=== PATIENT | female | born 2000 | race Hispanic/Latino ===

== ENCOUNTER 2023-05-18 00:15 | Emergency (ER) | payer OTHER ==
[2023-05-18] MEDS ORDERED: BENZONATATE 100 MG CAP PO ONE (01:04)
--- NOTE | 2023-05-18 01:45 | EDPHYS ---
Physician Documentation [facility] Name: Savannah Tyler Age: 22 yrs Sex: Female : 2000 Arrival Date: 05/18/2023 Time: 00:15 Bed 6 Private MD: ALYSSA Physician Xavier Medrano HPI: 05/18 00:45 This 22 yrs old Female presents to ER via Ambulatory with complaints of Sore cp Throat, Productive Cough. 00:45 The patient presents with sore throat. Onset: The symptoms/episode began/occurred last cp week. Associated signs and symptoms: Pertinent positives: cough, Pertinent negatives dysphagia, fever, flu-like symptoms. 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 - Social history:: Smoking status: Reported history of juuling and/or vaping. ROS: 00:50 Constitutional: Negative for body aches, chills, fever, poor PO intake. cp 00:50 Eyes: Negative for injury, pain, redness, and discharge. cp 00:50 ENT: Positive for sore throat, Negative for drainage from ear(s), ear pain, difficulty swallowing, difficulty handling secretions. 00:50 Respiratory: Positive for cough, Negative for shortness of breath, wheezing. 00:50 Abdomen/GI: Negative for abdominal pain, vomiting, diarrhea, constipation. 00:50 Neuro: Negative for altered mental status, dizziness, headache, weakness. 00:50 All other systems are negative. Exam: 00:55 Constitutional: The patient appears in no acute distress, alert, awake, non-toxic, well cp developed, well nourished. 00:55 Head/Face: Normocephalic, atraumatic. cp 00:55 Eyes: Periorbital structures: appear normal, Conjunctiva: normal, no exudate, no injection, Lids and lashes: appear normal, bilaterally. 00:55 ENT: External ear(s): are unremarkable, Ear canal(s): are normal, clear, TM's: dullness, bilaterally, Nose: is normal, Mouth: Lips: moist, Oral mucosa: pink and intact, moist, Posterior pharynx: Airway: no evidence of obstruction, patent, Tonsils: bilaterally enlarged, with erythema, with exudate, Uvula: midline, erythema, that is moderate. 00:55 Neck: ROM/movement: is normal, is supple, no meningismus, no nuchal rigidity. 00:55 Chest/axilla: Inspection: normal. 00:55 Cardiovascular: Rate: normal, Rhythm: regular. 00:55 Respiratory: the patient does not display signs of respiratory distress, Respirations: normal, no use of accessory muscles, no retractions, labored breathing, is not present, Breath sounds: are clear throughout, no decreased breath sounds, no stridor, no wheezing. 00:55 Abdomen/GI: Exam negative for discomfort, distension, guarding, Inspection: abdomen appears normal. Vital Signs: 00:41 BP 122 / 82; Pulse 89; Resp 16; Temp 98.1(O); Pulse Ox 100% on R/A; Weight 90 kg (M); ll3 Height 5 ft. 1 in. (R); 01:45 BP 102 / 64; Pulse 80; Resp 16 S; Pulse Ox 100% on R/A; ha1 00:41 Body Mass Index 37.49 (90.00 kg, 154.94 cm) ll3 MDM: 00:38 Patient medically screened. cp 01:44 Data reviewed: vital signs, nurses notes, lab test result(s). cp 01:44 Differential diagnosis: apthous stomatitis, apthous ulcer, group A strep tonsillitis, cp influenza, peritonsillar abscess pharyngitis, retropharyngeal abcess. I considered the following discharge prescriptions or medication management in the emergency department Medications were administered in the Emergency Department. See MAR. Counseling: I had a detailed discussion with the patient and/or guardian regarding: the historical points, exam findings, and any diagnostic results supporting the discharge/admit diagnosis, lab results, to return to the emergency department if symptoms worsen or persist or if there are any questions or concerns that arise at home. Response to treatment: the patient's symptoms have mildly improved after treatment, and as a result, I will discharge patient. 05/18 00:42 Order name: Strep; Complete Time: 01:44 cp 05/18 01:44 Interpretation: Reviewed. cp 05/18 01:09 Order name: SARS-COV-2 RT PCR EDMS 05/18 01:09 Order name: Influenza Screen (A ; Complete Time: 01:44 EDMS 05/18 01:09 Order name: Respiratory Syncytial Virus Ag; Complete Time: 01:44 EDMS 05/18 01:23 Order name: Throat Culture EDMS Administered Medications: 01:04 Drug: Tessalon Perle PO 200 mg Route: PO; ll3 01:53 Follow up: Response: No adverse reaction ha1 Disposition Summary: 05/18/23 01:44 Discharge Ordered Location: Home cp Problem: new cp Symptoms: have improved cp Condition: Stable cp Diagnosis - Acute tonsillitis, unspecified cp - Cough cp Followup: cp - With: Private Physician - When: 2 - 3 days - Reason: Worsening of condition Discharge Instructions: - Discharge Summary Sheet cp - Tonsillitis cp - Cough, Adult cp Forms: - Medication Reconciliation Form cp - Thank You Letter cp - Antibiotic Education cp - Prescription Opioid Use cp - [email or web address] cp Prescriptions: - Bromfed DM 2-30-10 mg/5 mL Oral syrup - administer 10 milliliter by ORAL route every 6 hours as needed for cold cp symptoms; 180 milliliter; Refills: 0, Product Selection Permitted - Augmentin 875-125 mg Oral Tablet - take 1 tablet by ORAL route every 12 hours for 10 days; 20 tablet; Refills: 0, cp Product Selection Permitted - Ibuprofen 800 mg Oral Tablet - take 1 tablet by ORAL route every 8 hours As needed take with food; 30 tablet; cp Refills: 0, Product Selection Permitted Signatures: Dispatcher [employer] EDMS Xavier Gar PA PA cp Kurtis Martinez RN RN ll3 Alma Scruggs RN ha1 Corrections: (The following items were deleted from the chart) : 00:43 COVID-19/FLU A+B/RSV+MOL.LAB.BRZ ordered. EDMS EDMS
--- NOTE | 2023-05-18 01:45 | ER ---
Nurse's Notes [facility] Name: Savannah Tyler Age: 22 yrs Sex: Female : 2000 Arrival Date: 05/18/2023 Time: 00:15 Bed 6 Private MD: Diagnosis: Acute tonsillitis, unspecified;Cough Presentation: 05/18 00:41 Chief complaint: Patient states: C/O cough, and sore throat since Tuesday, states "I ll3 think its getting worse". Coronavirus screen: Vaccine status: Patient reports being unvaccinated. cough unrelated to allergies, sore throat. Ebola Screen: No symptoms or risks identified at this time. Initial Sepsis Screen: Does the patient meet any 2 criteria? No. Patient's initial sepsis screen is negative. Does the patient have a suspected source of infection? No. Patient's initial sepsis screen is negative. Risk Assessment: Do you want to hurt yourself or someone else? Patient reports no desire to harm self or others. Onset of symptoms was May 13, 2023. 00:41 Method Of Arrival: Ambulatory ll3 00:41 Acuity: RUDY 4 ll3 Triage Assessment: 00:43 General: Appears uncomfortable, Behavior is calm, cooperative. Pain: Complains of pain ll3 in left aspect of posterior pharynx and right aspect of posterior pharynx Pain does not radiate. EENT: Throat is pink Reports pain since c/o pain with coughing since tuesday. Respiratory: Respiratory effort is even, unlabored, Respiratory pattern is regular, symmetrical. Respiratory: Reports cough that is persistent since tuesday. Derm: Skin is pink, warm \\T\\ dry. 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 - Social history:: Smoking status: Reported history of juuling and/or vaping. Screenin:[address] [facility] ED Fall Risk Assessment (Adult) History of falling in the last 3 months, ll3 including since admission No falls in past 3 months (0 pts) Confusion or Disorientation No (0 pts) Intoxicated or Sedated No (0 pts) Impaired Gait No (0 pts) Mobility Assist Device Used No (0 pt) Altered Elimination No (0 pt) Score/Fall Risk Level 0 - 2 = Low Risk Oriented to surroundings, Maintained a safe environment, Educated pt \\T\\ family on fall prevention, incl call for assistance when getting out of bed. Abuse screen: Denies threats or abuse. Denies injuries from another. Nutritional screening: On. Tuberculosis screening: No symptoms or risk factors identified. Assessment: 00:43 General: See triage assessessment. Respiratory: Airway is patent Breath sounds are ll3 clear bilaterally. 01:45 Reassessment: Patient and/or family updated on plan of care and expected duration. Pain ha1 level reassessed. Patient is alert, oriented x 3, equal unlabored respirations, skin warm/dry/pink. Vital Signs: 00:41 BP 122 / 82; Pulse 89; Resp 16; Temp 98.1(O); Pulse Ox 100% on R/A; Weight 90 kg (M); ll3 Height 5 ft. 1 in. (R); 01:45 BP 102 / 64; Pulse 80; Resp 16 S; Pulse Ox 100% on R/A; ha1 00:41 Body Mass Index 37.49 (90.00 kg, 154.94 cm) ll3 ED Course: 00:20 Patient arrived in ED. ja2 00:29 Xavier Gar PA is PHCP. cp 00:29 Xavier Medrano MD is Attending Physician. cp 00:43 Triage completed. ll3 00:46 Arm band placed on Patient placed in an exam room, on a stretcher, on pulse oximetry. ll3 00:47 Patient has correct armband on for positive identification. Bed in low position. Call ll3 light in reach. Side rails up X 1. Adult w/ patient. 01:04 Strep Sent. ll3 01:52 No provider procedures requiring assistance completed. Patient did not have IV access ha1 during this emergency room visit. Administered Medications: 01:04 Drug: Tessalon Perle PO 200 mg Route: PO; ll3 01:53 Follow up: Response: No adverse reaction ha1 Medication: 00:47 VIS not applicable for this client. ll3 Outcome: 01:44 Discharge ordered by . cp 01:52 Discharged to home ambulatory, with family. ha1 01:52 Condition: stable 01:52 Discharge instructions given to patient, family, Instructed on discharge instructions, follow up and referral plans. medication usage, Demonstrated understanding of instructions, follow-up care, medications, Prescriptions given X 3. 01:53 Patient left the ED. ha1 Signatures: Xavier Gar PA PA cp Alexander, Jessica ja2 Kurtis Martinez RN RN 3 Alma Scruggs RN RN 1 Corrections: (The following items were deleted from the chart) 01:09 01:04 COVID-19/FLU A+B/RSV+MOL.LAB.BRZ drawn and sent. ll3 EDMS
[2023-05-18 02:17] VITALS: TEMP 98.1; O2SAT 100
[2023-05-18 02:18] VITALS: BP 102/64
== END 2023-05-18 01:53 | disposition home or self-care (01) ==
LOC: ER 00:15
DX: J03.90 Acute tonsillitis, unspecified (principal); R05.9 Cough, unspecified; Z20.822 Contact with and (suspected) exposure to COVID-19
CPT/HCPCS: 87070; 87081; 87635; 87804; 87807; 99284

== ENCOUNTER 2024-12-04 19:07 | Emergency (ER) | payer OTHER ==
--- NOTE | 2024-12-04 19:58 | ER ---
Nurse's Notes [facility] Name: Savannah Tyler Age: 24 yrs Sex: Female : 2000 Arrival Date: 12/04/2024 Time: 19:07 Bed 12 Private MD: Diagnosis: Acute upper respiratory infection, unspecified;Fever, unspecified Presentation: 12/04 19:49 Chief complaint: Patient states: Cough, bodyaches and runny nose onset 3 days ago. pt's cm10 children also sick. Coronavirus screen: Client denies travel out of the [place] in the last 14 days. Ebola Screen: Patient denies travel to an Ebola-affected area in the 21 days before illness onset. Initial Sepsis Screen: Does the patient meet any 2 criteria? HR > 90 bpm. Does the patient have a suspected source of infection? No. Patient's initial sepsis screen is negative. Risk Assessment: Do you want to hurt yourself or someone else? Patient reports no desire to harm self or others. Onset of symptoms was December 01, 2024. 19:49 Method Of Arrival: Ambulatory cm10 19:49 Acuity: RUDY 4 cm10 Triage Assessment: 19:51 General: Appears in no apparent distress. comfortable, Behavior is calm, cooperative. cm10 Neuro: No deficits noted. Level of Consciousness is awake, alert, obeys commands, Oriented to person, place, time, situation, Appropriate for age. Respiratory: No deficits noted. Airway is patent Respiratory effort is even, unlabored, Respiratory pattern is regular, symmetrical. 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 - Infectious Disease History:: Denies. - Social history:: Smoking status: Patient denies any tobacco usage or history of. - Family history:: not pertinent. Screenin:14 [facility] ED Fall Risk Assessment (Adult) History of falling in the last 3 months, vc1 including since admission No falls in past 3 months (0 pts) Confusion or Disorientation No (0 pts) Intoxicated or Sedated No (0 pts) Impaired Gait No (0 pts) Mobility Assist Device Used No (0 pt) Altered Elimination No (0 pt) Score/Fall Risk Level 0 - 2 = Low Risk Oriented to surroundings, Maintained a safe environment, Educated pt \T\ family on fall prevention, incl call for assistance when getting out of bed. Abuse screen: Denies threats or abuse. Nutritional screening: No deficits noted. Tuberculosis screening: No symptoms or risk factors identified. Vital Signs: 19:49 BP 126 / 79; Pulse 98; Resp 19; Temp 99.1(O); Pulse Ox 100% on R/A; Weight 81.65 kg; cm10 Height 5 ft. 1 in. ; Pain 6/10; 21:01 BP 112 / 82; Pulse 104; Resp 18; Temp 98.6(TE); Pulse Ox 100% on R/A; oe 19:49 Body Mass Index 34.01 (81.65 kg, 154.94 cm) cm10 19:49 Pain Scale: Adult cm10 ED Course: 19:13 Patient arrived in ED. mr 19:28 Xavier Medrano MD is Attending Physician. [facility] 19:50 Triage completed. cm10 19:50 SARS RAPID Sent. bc6 19:50 Flu Sent. bc6 19:50 COVID swab sent to lab. Flu and/or RSV swab sent to lab. bc6 19:51 Arm band placed on right wrist. Patient placed in waiting room. cm10 21:14 No provider procedures requiring assistance completed. Patient did not have IV access vc1 during this emergency room visit. 21:15 Patient has correct armband on for positive identification. Provided Education on: vc1 tamiflu. Administered Medications: 19:57 Not Given (Patient Refused): ibuprofensuspension 10 mg/kg PO once cm10 Medication: 21:14 VIS not applicable for this client. vc1 Outcome: 19:57 Discharge ordered by . janice 21:14 Discharged to home ambulatory, with family, vc1 21:14 Condition: good 21:14 Discharge instructions given to patient, Instructed on discharge instructions, follow up and referral plans. medication usage, Demonstrated understanding of instructions, follow-up care, medications, Prescriptions given X 4, 21:15 Patient left the ED. vc1 Signatures: Xavier Medrano MD MD cha Rivera, Mary, Prashant Reg mr Burgess, Lucy Durant, RN RN vc1 Ximena Addison6 Susannah Howard, RN RN cm10
--- NOTE | 2024-12-04 19:58 | EDPHYS ---
Physician Documentation [facility] Name: Savannah Tyler Age: 24 yrs Sex: Female : 2000 Arrival Date: 12/04/2024 Time: 19:07 Bed 12 Private MD: ED Physician Xavier Medrano HPI: 12/04 19:54 This 24 yrs old Female presents to ER via Ambulatory with complaints of Flu janice Symptoms. 19:54 The patient or guardian reports airway noise, cough, difficulty breathing, flu janice symptoms. Onset: The symptoms/episode began/occurred 2 day(s) ago. Modifying factors: The symptoms are alleviated by nothing. the symptoms are aggravated by nothing. Associated signs and symptoms: Pertinent positives: rhinorrhea, sore throat, Pertinent negatives: diarrhea. Severity of symptoms: At their worst the symptoms were mild in the emergency department the symptoms are unchanged. The patient has experienced similar episodes in the past, several times. 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 - Infectious Disease History:: Denies. - Social history:: Smoking status: Patient denies any tobacco usage or history of. - Family history:: not pertinent. ROS: 19:54 Constitutional: Negative for fever, chills, and weight loss, Eyes: Negative for injury, janice pain, redness, and discharge, ENT: Negative for injury, pain, and discharge, Neck: Negative for injury, pain, and swelling, Cardiovascular: Negative for chest pain, palpitations, and edema, Abdomen/GI: Negative for abdominal pain, nausea, vomiting, diarrhea, and constipation, Back: Negative for injury and pain, : Negative for injury, bleeding, discharge, and swelling, MS/Extremity: Negative for injury and deformity, Skin: Negative for injury, rash, and discoloration, Neuro: Negative for headache, weakness, numbness, tingling, and seizure, Psych: Negative for depression, anxiety, suicide ideation, homicidal ideation, and hallucinations, Allergy/Immunology: Negative for hives, rash, and allergies, Endocrine: Negative for neck swelling, polydipsia, polyuria, polyphagia, and marked weight changes, Hematologic/Lymphatic: Negative for swollen nodes, abnormal bleeding, and unusual bruising, 19:54 Respiratory: Positive for cough, Exam: 19:54 Constitutional: This is a well developed, well nourished patient who is awake, alert, janice and in no acute distress. Head/Face: Normocephalic, atraumatic. Eyes: Pupils equal round and reactive to light, extra-ocular motions intact. Lids and lashes normal. Conjunctiva and sclera are non-icteric and not injected. Cornea within normal limits. Periorbital areas with no swelling, redness, or edema. ENT: Nares patent. No nasal discharge, no septal abnormalities noted. Tympanic membranes are normal and external auditory canals are clear. Oropharynx with no redness, swelling, or masses, exudates, or evidence of obstruction, uvula midline. Mucous membranes moist. Neck: Trachea midline, no thyromegaly or masses palpated, and no cervical lymphadenopathy. Supple, full range of motion without nuchal rigidity, or vertebral point tenderness. No Meningismus. Chest/axilla: Normal chest wall appearance and motion. Nontender with no deformity. No lesions are appreciated. Cardiovascular: Regular rate and rhythm with a normal S1 and S2. No gallops, murmurs, or rubs. Normal PMI, no JVD. No pulse deficits. Respiratory: Lungs have equal breath sounds bilaterally, clear to auscultation and percussion. No rales, rhonchi or wheezes noted. No increased work of breathing, no retractions or nasal flaring. Abdomen/GI: Soft, non-tender, with normal bowel sounds. No distension or tympany. No guarding or rebound. No evidence of tenderness throughout. Back: No spinal tenderness. No costovertebral tenderness. Full range of motion. Skin: Warm, dry with normal turgor. Normal color with no rashes, no lesions, and no evidence of cellulitis. MS/ Extremity: Pulses equal, no cyanosis. Neurovascular intact. Full, normal range of motion., bilateral aka Neuro: Awake and alert, GCS 15, oriented to person, place, time, and situation. Cranial nerves II-XII grossly intact. Motor strength 5/5 in all extremities. Sensory grossly intact. Cerebellar exam normal. Normal gait. Psych: Awake, alert, with orientation to person, place and time. Behavior, mood, and affect are within normal limits. Vital Signs: 19:49 BP 126 / 79; Pulse 98; Resp 19; Temp 99.1(O); Pulse Ox 100% on R/A; Weight 81.65 kg; cm10 Height 5 ft. 1 in. ; Pain 6/10; 21:01 BP 112 / 82; Pulse 104; Resp 18; Temp 98.6(TE); Pulse Ox 100% on R/A; oe 19:49 Body Mass Index 34.01 (81.65 kg, 154.94 cm) cm10 19:49 Pain Scale: Adult cm10 MDM: 19:28 Medical Screening Exam initiated [facility] 19:56 Differential diagnosis: tracheal injury, bronchitis, flu, URI. Antibiotic janice administration: The patient is discharged and will get outpatient antibiotics, Zithromax. Data reviewed: vital signs, nurses notes, lab test result(s). Consideration of Admission/Observation Escalation of care including admission/observation considered. I considered the following discharge prescriptions or medication management in the emergency department Medications were administered in the Emergency Department. See MAR. Care significantly affected by the following chronic conditions: NONE. 12/04 19:29 Order name: Flu; Complete Time: 20:37 janice 12/04 19:29 Order name: SARS RAPID; Complete Time: 20:37 janice Administered Medications: 19:57 Not Given (Patient Refused): ibuprofensuspension 10 mg/kg PO once cm10 Disposition Summary: 12/04/24 19:57 Discharge Ordered Notes: Location: Home [facility] Problem: new [facility] Symptoms: have improved janice Condition: Stable [facility] Diagnosis - Acute upper respiratory infection, unspecified janice - Fever, unspecified janice Followup: janice - With: Private Physician - When: 2 - 3 days - Reason: Recheck today's complaints, Continuance of care, Re-evaluation by your physician Discharge Instructions: - Discharge Summary Sheet janice - Fever, Adult janice - Upper Respiratory Infection, Adult janice - Cool Mist Vaporizer [facility] Forms: - Medication Reconciliation Form janice - Antibiotic Education janice - Prescription Opioid Use janiec - Patient Portal Instructions [facility] - Leadership Thank You Letter [facility] Prescriptions: - Cris-D 12 Hour 60-120 mg Oral Tablet Sustained Release 12 hr - take 1 tablet ORAL route every 12 hours As needed; 20 tablet; Refills: 0, [facility] Product Selection Permitted - Tessalon Perles 100 mg Oral capsule - take 2 capsule ORAL route every 8 hours As needed; 30 capsule; Refills: 0, [facility] Product Selection Permitted - Zithromax Z-Kee 250 mg Oral Tablet - take 1 tablet ORAL route as directed for 5 days Day 1 - take two (2) tablets janice one time. Day 2, 3, 4 , 5 take one (1) tablet once daily.; 6 tablet; Refills: 0, Product Selection Permitted - Tamiflu 75 mg Oral capsule - take 1 tablet ORAL route every 12 hours for 5 days; 10 tablet; Refills: 0, [facility] Product Selection Permitted Signatures: Dispatcher [employer] Xavier Martini MD MD cha Martinez, Clarissa RN RN cm10
[2024-12-04 20:17] LABS: SARS-CoV-2 Antigen CONTROL BLUE LINE VIS/BG OK; SARS-CoV-2 Antigen Rapid Res Negative (Negative)
[2024-12-07 01:43] VITALS: BP 112/82; TEMP 98.6; O2SAT 100
== END 2024-12-04 21:15 | disposition home or self-care (01) ==
LOC: ER 19:07
DX: J06.9 Acute upper respiratory infection, unspecified (principal); Z11.52 Encounter for screening for COVID-19
CPT/HCPCS: 36415; 87804; 87811; 99283